=== PATIENT | male | born 1950 | race Caucasian/White ===

== ENCOUNTER → 2023-08-07 07:15 | Outpatient (REF) | payer OTHER, SELFPAY ==
[2023-08-07 10:58] LABS: PSA, Total - Diagnostic 5.33 ng/ml (0.0-4.0)
== END ==
LOC: REG 07:15
PROVIDERS: ATTENDING PHYSICIAN Urology; FAMILY PHYSICIAN Nurse Practitioner Family
DX: R97.20 Elevated prostate specific antigen [PSA] (principal)
CPT/HCPCS: 36415; 84153

== ENCOUNTER → 2023-11-04 07:04 | Outpatient (REF) | payer OTHER, SELFPAY | LOC: RCS 07:04 | PROVIDERS: ATTENDING PHYSICIAN Internal Medicine Rheumatology; FAMILY PHYSICIAN Nurse Practitioner Family | DX: R06.02 Shortness of breath (principal) | CPT/HCPCS: 93306 ==

== ENCOUNTER → 2024-02-12 07:45 | Outpatient (REF) | payer OTHER, SELFPAY ==
[2024-02-12 08:42] LABS: % Basophils 2.8 % (0-2); % Eosinophils 6.4 % (0-6); % Immature Granulocytes 0.4 % (0-0.5); % Lymphocytes 22.3 % (20.5-51.1); % Monocytes 4.7 % (1.7-9.3); % Neutrophils 63.4 % (42.2-75.2); Absolute Basophils 0.2 10^3/uL (0-0.2); Absolute Eosinophils 0.4 10^3/uL (0-0.7); Absolute Lymphocytes 1.5 10^3/uL (1.2-3.4); Absolute Monocytes 0.3 10^3/uL (0.1-0.6); Absolute Neutrophils 4.3 10^3/uL (1.4-6.5); Hematocrit 37.6 % (39.0-52.0); Hemoglobin 12.7 g/dL (13.0-18.0); Mean Corp Hgb Conc. 33.8 g/dL (33.0-37.0); Mean Corpuscular Hgb 29.9 pg (27.0-31.0); Mean Corpuscular Volume 88.5 fL (80.0-94.0); Nucleated Red Blood Cells % 0 % (-); Red Blood Cell Count 4.25 10^6/uL (4.70-6.10); Red Cell Dist. Width 15.8 % (11.5-14.5); White Blood Cell Count 6.8 10^3/uL (4.8-10.8)
[2024-02-12 08:48] LABS: Erythrocyte Sed Rate 16 mm/hour (0-20)
[2024-02-12 09:11] LABS: ALT (SGPT) 25 U/L (0-50); AST (SGOT) 32 U/L (17-59); Albumin 4.5 g/dl (3.5-5.0); Alkaline Phosphatase 45 U/L (38-126); Calcium 9.5 mg/dl (8.4-10.2); Carbon Dioxide 26 mmol/L (22-30); Chloride 104 mmol/L (98-107); Glucose 104 mg/dl (70-99); HDL Cholesterol 43 mg/dl; LDL Cholesterol, Calculated 61 mg/dl; Potassium 4.3 mmol/L (3.5-5.1); Sodium 142 mmol/L (135-145); Total Cholesterol 114 mg/dl (50-199); Triglyceride 51 mg/dl (10-149); Very Low Density Lipoprotein 10 mg/dl (0-30); eGFR 58.37
[2024-02-12 09:15] LABS: Complement C3 99 mg/dl (88-165)
[2024-02-12 09:21] LABS: Blood Urea Nitrogen 18 mg/dl (9-20)
[2024-02-12 09:24] LABS: Microalbumin, Random Urine 12.7 mg/dl (0.6-1.7); Microalbumin/creatinine Ratio 99.3 mg/g
[2024-02-12 09:25] LABS: Mean Platelet Volume 9.3 fL (7.4-10.4); Platelet Count 118 10^3/uL (130-400)
[2024-02-12 09:59] LABS: TSH Reflex To Free T4 1.46 uIU/ml (0.47-4.68)
== END ==
LOC: REG 07:45
PROVIDERS: ATTENDING PHYSICIAN Internal Medicine Rheumatology; FAMILY PHYSICIAN Nurse Practitioner Family
DX: M35.00 Sjogren syndrome, unspecified (principal); K21.9 Gastro-esophageal reflux disease without esophagitis; G47.31 Primary central sleep apnea; N40.0 Benign prostatic hyperplasia without lower urinary tract symptoms; D69.9 Hemorrhagic condition, unspecified; E78.00 Pure hypercholesterolemia, unspecified; Z79.899 Other long term (current) drug therapy; N18.9 Chronic kidney disease, unspecified; Z00.00 Encounter for general adult medical examination without abnormal findings
CPT/HCPCS: 36415; 80053; 80061; 82043; 82570; 84153; 84155; 84165; 84443; 85025; 85652; 86160

== ENCOUNTER → 2024-02-23 10:38 | Outpatient (REF) | payer OTHER, SELFPAY ==
[2024-02-23 12:28] LABS: % Basophils 2.4 % (0-2); % Eosinophils 7.3 % (0-6); % Immature Granulocytes 0.5 % (0-0.5); % Lymphocytes 21.8 % (20.5-51.1); % Monocytes 5.5 % (1.7-9.3); % Neutrophils 62.5 % (42.2-75.2); Absolute Basophils 0.2 10^3/uL (0-0.2); Absolute Eosinophils 0.5 10^3/uL (0-0.7); Absolute Lymphocytes 1.4 10^3/uL (1.2-3.4); Absolute Monocytes 0.3 10^3/uL (0.1-0.6); Absolute Neutrophils 3.9 10^3/uL (1.4-6.5); Hematocrit 36.9 % (39.0-52.0); Hemoglobin 12.2 g/dL (13.0-18.0); Mean Corp Hgb Conc. 33.1 g/dL (33.0-37.0); Mean Corpuscular Hgb 29.4 pg (27.0-31.0); Mean Corpuscular Volume 88.9 fL (80.0-94.0); Mean Platelet Volume 10.8 fL (7.4-10.4); Nucleated Red Blood Cells % 0 % (-); Platelet Count 118 10^3/uL (130-400); Red Blood Cell Count 4.15 10^6/uL (4.70-6.10); Red Cell Dist. Width 15.8 % (11.5-14.5); White Blood Cell Count 6.2 10^3/uL (4.8-10.8)
[2024-02-23 12:38] LABS: Glycohemoglobin (HgbA1c) 5.3 % (4.0-5.6)
[2024-02-23 12:45] LABS: Iron 53 ug/dl (49-181)
[2024-02-23 12:55] LABS: Percent Saturation 18 % (20-50); Total Iron Binding Capacity 279 ug/dl (261-462)
[2024-02-23 13:23] LABS: Ferritin 30.1 ng/ml (17.9-464.0)
[2024-02-23 13:37] LABS: Vitamin B12 777 pg/ml (239-931)
== END ==
LOC: HWLAB 10:38
PROVIDERS: ATTENDING PHYSICIAN Nurse Practitioner Family
DX: R73.01 Impaired fasting glucose (principal); D64.9 Anemia, unspecified
CPT/HCPCS: 36415; 82607; 82728; 83036; 83540; 83550; 85025

== ENCOUNTER → 2024-03-22 07:41 | Outpatient (REF) | payer OTHER, SELFPAY ==
[2024-03-22 08:58] LABS: % Basophils 2.9 % (0-2); % Eosinophils 4.6 % (0-6); % Immature Granulocytes 0.5 % (0-0.5); % Lymphocytes 24.4 % (20.5-51.1); % Monocytes 5.2 % (1.7-9.3); % Neutrophils 62.4 % (42.2-75.2); Absolute Basophils 0.2 10^3/uL (0-0.2); Absolute Eosinophils 0.3 10^3/uL (0-0.7); Absolute Lymphocytes 1.6 10^3/uL (1.2-3.4); Absolute Monocytes 0.3 10^3/uL (0.1-0.6); Absolute Neutrophils 4.1 10^3/uL (1.4-6.5); Hematocrit 41.2 % (39.0-52.0); Hemoglobin 13.3 g/dL (13.0-18.0); Mean Corp Hgb Conc. 32.3 g/dL (33.0-37.0); Mean Corpuscular Hgb 30.3 pg (27.0-31.0); Mean Corpuscular Volume 93.8 fL (80.0-94.0); Mean Platelet Volume 9.6 fL (7.4-10.4); Nucleated Red Blood Cells % 0 % (-); Platelet Count 130 10^3/uL (130-400); Red Blood Cell Count 4.39 10^6/uL (4.70-6.10); Red Cell Dist. Width 15.9 % (11.5-14.5); Reticulocyte Count 1.5 % (0.4-2.8); White Blood Cell Count 6.6 10^3/uL (4.8-10.8)
[2024-03-22 09:02] LABS: INR 1.06; PT 14.3 Sec (11.4-14.6)
[2024-03-22 09:03] LABS: APTT 29.8 Sec (23.4-35.0); Fibrinogen 327 MG/DL (199-459)
[2024-03-22 09:31] LABS: Erythrocyte Sed Rate 16 mm/hour (0-20)
[2024-03-22 11:30] LABS: ALT (SGPT) 25 U/L (0-50); AST (SGOT) 33 U/L (17-59); Albumin 4.8 g/dl (3.5-5.0); Alkaline Phosphatase 45 U/L (38-126); Blood Urea Nitrogen 22 mg/dl (9-20); Calcium 9.8 mg/dl (8.4-10.2); Carbon Dioxide 29 mmol/L (22-30); Chloride 102 mmol/L (98-107); Glucose 101 mg/dl (70-99); Iron 133 ug/dl (49-181); LDH 182 U/L (120-246); Potassium 4.1 mmol/L (3.5-5.1); Sodium 142 mmol/L (135-145); Total Bilirubin 1.9 mg/dl (0.2-1.3); Total Protein 7.7 g/dl (6.3-8.2)
[2024-03-22 11:41] LABS: Percent Saturation 43 % (20-50); Total Iron Binding Capacity 303 ug/dl (261-462)
[2024-03-22 11:49] LABS: C-Reactive Protein < 5.00 mg/L (0.0-10.00)
[2024-03-22 13:46] LABS: Ferritin 29.9 ng/ml (17.9-464.0)
[2024-03-22 14:00] LABS: Vitamin B12 843 pg/ml (239-931)
[2024-03-22 15:15] LABS: Folate > 20.0 ng/ml (2.76-20)
[2024-03-23 20:29] LABS: Hepatitis B Surface Antigen Negative (Negative)
[2024-03-23 20:48] LABS: Hepatitis B Core Ab, Total Negative (Negative); Hepatitis B Surface Antibody Negative; Hepatitis C Antibody Negative (Negative)
[2024-03-23 22:11] LABS: Number Of Markers 26 markers; Source Blood
[2024-03-24 01:29] LABS: Beta-2-Glycoprotein I Ab. IgA <10 SAU (<=20); Beta-2-Glycoprotein I Ab. IgG <10 SGU (<=20); Beta-2-Glycoprotein I Ab. IgM <10 SMU (<=20)
[2024-03-24 05:41] LABS: Cardiolipin IgA Antibody <10 APL (<=11); Cardiolipin IgM Antibody <10 MPL (<=12); Cardiolipin Igg Antibody <10 GPL (<=14)
[2024-03-24 12:02] LABS: Haptoglobin 131 mg/dL (30-200)
[2024-03-25 01:57] LABS: Albumin 4.33 g/dL (3.75-5.01); Alpha 1 Globulin 0.29 g/dL (0.19-0.46); Alpha 2 Globulin 0.77 g/dL (0.48-1.05); Free Kappa Light Chains,Quant 36.46 mg/L (3.30-19.40); Free Lambda Light Chains,Quant 21.03 mg/L (5.71-26.30); IgA 214 mg/dL (68-408); IgG 1260 mg/dL (768-1632); IgM 144 mg/dL (35-263); Immunofixation Electrophoresis IFE Done; Kappa/Lambda Fr Light Ratio 1.73 (0.26-1.65); Total Protein-Electrophoresis 7.5 g/dL (6.3-8.2)
== END ==
LOC: REG 07:41
PROVIDERS: ATTENDING PHYSICIAN Internal Medicine Hematology & Oncology
DX: D46.9 Myelodysplastic syndrome, unspecified (principal); D69.3 Immune thrombocytopenic purpura
CPT/HCPCS: 36415; 80053; 82607; 82728; 82746; 82784; 83010; 83521; 83540; 83550; 83615; 84155; 84165; 85025; 85045; 85384; 85610; 85613; 85652; 85730; 86140; 86146; 86147; 86334; 86704; 86706; 86803; 86880; 87340

== ENCOUNTER → 2024-04-06 09:51 | Outpatient (REF) | payer OTHER, SELFPAY | LOC: HWRAD 09:51 | PROVIDERS: ATTENDING PHYSICIAN Internal Medicine Hematology & Oncology; FAMILY PHYSICIAN Nurse Practitioner Family | DX: R16.1 Splenomegaly, not elsewhere classified (principal) | CPT/HCPCS: 76700 ==

== ENCOUNTER → 2024-08-01 07:43 | Outpatient (REF) | payer OTHER, SELFPAY | LOC: RST 07:43 | PROVIDERS: ATTENDING PHYSICIAN Internal Medicine Rheumatology; FAMILY PHYSICIAN Nurse Practitioner Family; OTHER PHYSICIAN Internal Medicine Gastroenterology | DX: M34.1 CR(E)ST syndrome (principal) | CPT/HCPCS: 74230; 92611 ==

== ENCOUNTER → 2024-08-10 11:16 | Outpatient (REF) | payer OTHER, SELFPAY ==
[2024-08-10 13:05] LABS: PSA, Total - Diagnostic 6.63 ng/ml (0.0-4.0)
== END ==
LOC: REG 11:16
PROVIDERS: ATTENDING PHYSICIAN Urology; FAMILY PHYSICIAN Nurse Practitioner Family
DX: R97.20 Elevated prostate specific antigen [PSA] (principal)
CPT/HCPCS: 36415; 84153

== ENCOUNTER → 2024-08-24 07:35 | Outpatient (REF) | payer OTHER, SELFPAY | LOC: RAD 07:35 | PROVIDERS: ATTENDING PHYSICIAN Internal Medicine Rheumatology; FAMILY PHYSICIAN Nurse Practitioner Family; OTHER PHYSICIAN Internal Medicine Gastroenterology | DX: M34.1 CR(E)ST syndrome (principal); K31.84 Gastroparesis | CPT/HCPCS: 78264; A9541 ==

== ENCOUNTER → 2024-09-28 09:41 | Outpatient (REF) | payer OTHER, SELFPAY ==
[2024-09-28 10:11] LABS: % Basophils 1.9 % (0-2); % Eosinophils 3.1 % (0-6); % Immature Granulocytes 0.3 % (0-0.5); % Lymphocytes 21.5 % (20.5-51.1); % Monocytes 5.9 % (1.7-9.3); % Neutrophils 67.3 % (42.2-75.2); Absolute Basophils 0.1 10^3/uL (0-0.2); Absolute Eosinophils 0.2 10^3/uL (0-0.7); Absolute Lymphocytes 1.3 10^3/uL (1.2-3.4); Absolute Monocytes 0.4 10^3/uL (0.1-0.6); Absolute Neutrophils 4.2 10^3/uL (1.4-6.5); Hematocrit 36.2 % (39.0-52.0); Hemoglobin 11.8 g/dL (13.0-18.0); Mean Corp Hgb Conc. 32.6 g/dL (33.0-37.0); Mean Corpuscular Hgb 29.9 pg (27.0-31.0); Mean Corpuscular Volume 91.6 fL (80.0-94.0); Nucleated Red Blood Cells % 0 % (-); Red Blood Cell Count 3.95 10^6/uL (4.70-6.10); Red Cell Dist. Width 17.1 % (11.5-14.5); White Blood Cell Count 6.2 10^3/uL (4.8-10.8)
[2024-09-28 11:07] LABS: Mean Platelet Volume 9.4 fL (7.4-10.4); Platelet Count 78 10^3/uL (130-400)
[2024-09-28 11:36] LABS: ALT (SGPT) 19 U/L (0-50); AST (SGOT) 24 U/L (17-59); Albumin 4.4 g/dl (3.5-5.0); Alkaline Phosphatase 53 U/L (38-126); Blood Urea Nitrogen 22 mg/dl (9-20); Calcium 9.3 mg/dl (8.4-10.2); Carbon Dioxide 26 mmol/L (22-30); Chloride 109 mmol/L (98-107); Glucose 95 mg/dl (70-99); Potassium 4.4 mmol/L (3.5-5.1); Sodium 142 mmol/L (135-145); Total Bilirubin 1.9 mg/dl (0.2-1.3); Total Protein 7.1 g/dl (6.3-8.2); eGFR 58.01
== END ==
LOC: REG 09:41
PROVIDERS: ATTENDING PHYSICIAN Internal Medicine Hematology & Oncology; FAMILY PHYSICIAN Nurse Practitioner Family
DX: D69.6 Thrombocytopenia, unspecified (principal); D47.2 Monoclonal gammopathy
CPT/HCPCS: 36415; 80053; 82784; 83521; 84155; 84165; 85025; 86334

== ENCOUNTER → 2024-10-30 10:34 | Outpatient (REF) | payer OTHER, SELFPAY ==
[2024-10-30 12:17] LABS: INR 1.06; PT 14.1 Sec (11.4-14.6)
[2024-10-30 12:18] LABS: APTT 29.8 Sec (23.4-35.0)
[2024-10-30 12:21] LABS: Hematocrit 36.4 % (39.0-52.0); Hemoglobin 11.7 g/dL (13.0-18.0); Mean Corp Hgb Conc. 32.1 g/dL (33.0-37.0); Mean Corpuscular Volume 92.4 fL (80.0-94.0); Nucleated Red Blood Cells % 0 % (-); Platelet Count 88 10^3/uL (130-400); Red Cell Dist. Width 17.2 % (11.5-14.5)
[2024-10-30 13:58] LABS: LDH 183 U/L (120-246)
[2024-10-30 14:55] LABS: Folate 18.4 ng/ml (2.76-20); Vitamin B12 677 pg/ml (239-931)
[2024-11-01 14:06] LABS: Source Blood
== END ==
LOC: REG 10:34
PROVIDERS: ATTENDING PHYSICIAN Internal Medicine Hematology & Oncology; FAMILY PHYSICIAN Nurse Practitioner Family
DX: D68.9 Coagulation defect, unspecified (principal); E53.8 Deficiency of other specified B group vitamins; D46.9 Myelodysplastic syndrome, unspecified
CPT/HCPCS: 36415; 82607; 82746; 83010; 83615; 85025; 85610; 85730

== ENCOUNTER 2024-11-23 06:13 | Day surgery (SDC) | payer OTHER, SELFPAY | END 2024-11-23 10:20 | disposition home or self-care (01) | LOC: GI 06:13 | PROVIDERS: ATTENDING PHYSICIAN Internal Medicine Gastroenterology | DX: R12 Heartburn (principal); R13.10 Dysphagia, unspecified; K44.9 Diaphragmatic hernia without obstruction or gangrene; K31.7 Polyp of stomach and duodenum; Q39.9 Congenital malformation of esophagus, unspecified; K31.89 Other diseases of stomach and duodenum | CPT/HCPCS: 43239; 88305; 88342 ==

== ENCOUNTER → 2024-11-23 06:13 | Day surgery (SDC) | payer OTHER, SELFPAY | LOC: GI 06:13 | PROVIDERS: ATTENDING PHYSICIAN Internal Medicine Gastroenterology | DX: Z53.9 Procedure and treatment not carried out, unspecified reason (principal) | CPT/HCPCS: 45378 ==